=== PATIENT | female | born 1995 | race Caucasian/White ===

== ENCOUNTER → 2017-03-23 | Day surgery (SDC) | payer OTHER ==
[2017-03-14 11:37] VITALS: Ht 167.6 cm; Wt 75.0 kg
[~2017-03-23] VITALS: Ht 167.6 cm; Wt 75.0 kg
[~2017-03-23] MED LIST: LIDOCAINE HCL 2% 2 ML VIAL (20MG/ML) ONE; MIDAZOLAM HCL 1 MG/ML 2ML VIAL ONE; PROPOFOL IV EMULSION 10 MG/ML 20 ML VIAL IV ONE
--- NOTE | 2017-03-23 12:24 | Endo History and Physical ---
History & Physical Date of Service: Mar 23, 2017. Chief Complaint: cough,GERD Referring Physician: [facility] History of Present Illness 21 yo CF who presents for EGD with Foley placement secondary to Cough and GERD. Past Surgical History Hx Cardiac Surgery: No Hx Internal Defibrillator: No Hx Pacemaker: No Hx Abdominal Surgery: No Hx of Implantable Prosthesis: No Hx Post-Op Nausea and Vomiting: No Hx Cancer Surgery: No Hx Thoracic Surgery: No Hx Orthopedic: No Hx Urinary Tract Surgery: No Family History None Social History Smoking Status: Never Smoker Hx Substance Use: Yes (MARIJUANA OCCASIONALLY) Hx Alcohol Use: Yes (4-5 DRINKS OVER WEEKEND) Allergies Coded Allergies: Amoxicillin (Verified Allergy, Unknown, HIVES, 03/14/17) Clavulanic Acid (Verified Allergy, Unknown, HIVES, 03/14/17) Current Medications Reported Home Medications Medications Dose Route/Sig Max Daily Dose Days Date Category No Active Prescriptions or Reported Medications Rx Vital Signs Weight (Kilograms): 75 Height (Feet): 5 Height (Inches): 6 Date Time Temp Pulse Resp B/P (MAP) Pulse Ox O2 Delivery O2 Flow Rate FiO2 03/23/17 11:38 36.7 76 16 124/82 (96) 96 Room Air Physical Exam General Appearance: WD/WN, no apparent distress Respiratory/Chest: Auscultation: breath sounds normal Cardiovascular: Heart Auscultation: RRR Abdomen: Bowel Sounds: normal Inspection & Palpation: soft, non-distended, no tenderness, guarding & rebound Assessment and Plan Assessment: 21 yo CF who presents for EGD with Foley placement secondary to Cough and GERD. Plan: Proceed with EGD with Foley placement.
--- NOTE | 2017-03-23 12:55 | GI REPORT ---
Procedure Date: 03/23/2017 12:19 PM Procedure: Upper GI endoscopy Indications: Suspected esophageal reflux Medicines: Monitored Anesthesia Care Complications: No immediate complications. Estimated Blood Loss: Estimated blood loss: none. Procedure: Pre-Anesthesia Assessment: - Prior to the procedure, a History and Physical was performed, and patient medications and allergies were reviewed. The patient's tolerance of previous anesthesia was also reviewed. The risks and benefits of the procedure and the sedation options and risks were discussed with the patient. All questions were answered, and informed consent was obtained. Prior Anticoagulants: The patient has taken no previous anticoagulant or antiplatelet agents. ASA Grade Assessment: II - A patient with mild systemic disease. After reviewing the risks and benefits, the patient was deemed in satisfactory condition to undergo the procedure. After obtaining informed consent, the endoscope was passed under direct vision. Throughout the procedure, the patient's blood pressure, pulse, and oxygen saturations were monitored continuously. The scope was introduced through the mouth, and advanced to the second part of duodenum. The upper GI endoscopy was accomplished without difficulty. The patient tolerated the procedure well. Findings: The JAIME capsule with delivery system was introduced through the mouth and advanced into the esophagus, such that the JAIME pH capsule was positioned 33 cm from the incisors, which was 6 cm proximal to the EG junction. The JAIME pH capsule was then deployed and attached to the esophageal mucosa. The delivery system was then withdrawn. Endoscopy was utilized for probe placement and diagnostic evaluation. The examined esophagus was normal. The stomach was normal. The examined duodenum was normal. Impression: - Normal esophagus. - Normal stomach. - Normal examined duodenum. - The JAIME pH capsule was deployed. - No specimens collected. Recommendation: - Resume previous diet. - Continue present medications. - Return to GI clinic as previously scheduled. Elie Blankenship DO 03/23/2017 12:55:25 PM This report has been signed electronically. Note Initiated On: 03/23/2017 12:19 PM I attest to the content of the Intraoperative Record and orders documented therein, exceptions below
--- NOTE | 2017-03-23 12:58 | Discharge Instructions ---
Endoscopy Patient Instructions Date / Procedure(s) Performed Mar 23, 2017. EGD Allergy Information Coded Allergies: Amoxicillin (Verified Allergy, Unknown, HIVES, 03/14/17) Clavulanic Acid (Verified Allergy, Unknown, HIVES, 03/14/17) Discharge Date / Findings Mar 23, 2017. Successful Foley pH placement Medication Instructions OK to resume all medications today as prescribed Reported Home Medications Medications Dose Route/Sig Max Daily Dose Days Date Category No Active Prescriptions or Reported Medications Rx Provider Instructions Activity Restrictions - No exercising or heavy lifting for 24 hours. - Do not drink alcohol the day of the procedure. - Do not drive a car or operate machinery until the day after the procedure. - Do not make any important decisions or sign important papers in 24 hours after the procedure. Following Day: - Return to full activity which may include returning to work/school. Diet Start your diet with liquids and light foods (jello, soup, juice, toast). Then eat your usual diet if not nauseated. Treatment For Common After Affects For mild abdominal pain, bloating, or excessive gas: - Rest - Eat lightly - Lie on right side Follow-Up Information Follow-up with [facility] as scheduled Anesthesia Information What You Should Know You have had a procedure that required some medicine to reduce anxiety and discomfort. This treatment is called moderate sedation. After receiving the treatment, you may be sleepy, but you will be able to breathe on your own. The effects of the treatment may last for several hours. Follow these instructions along with Activity/Diet recommendations noted above: * Do NOT do anything where dizziness or clumsiness would be dangerous. * Rest quietly at home today, then you can be up and about tomorrow. * Have a responsible person stay with you the rest of today. * You may have had an I.V. today. If so, you may take the dressing off later today. Recommendations Call your doctor if: * Trouble breathing * Continuous vomiting for more than 24 hours * Temperature above 101 degrees * Severe abdominal pain or bloating * Pain not relieved by pain medicine ordered * There is increased drainage or redness from any incision * A large amount of rectal bleeding greater than 2-3 tablespoons. (If you had a polyp/s removed or have hemorrhoids, a small amount of blood - from the rectum is to be expected.) * You have any unanswered questions or concerns. IN THE EVENT OF A SERIOUS EMERGENCY, GO TO THE NEAREST EMERGENCY ROOM Your discharge instructions were prepared by provider Elie Blankenship. Patient Instructions Signature Page Becky Jacob Patient (or Guardian) Signature/Date: I have read and understand the instructions given to me by my caregivers. Caregiver/RN/Doctor Signature/Date: The above-named patient and/or guardian has received patient instructions on this date. + Original Patient Signature Page (only) stays with chart. Please make copy for patient.
--- NOTE | 2017-03-23 13:27 | Anesthesiology Progress Note ---
Anesthesia Post Op Note Date & Time Mar 23, 2017 at 13:27 Vital Signs Pain Intensity: 0 Vital Signs Past 12 Hours Date Time Temp Pulse Resp B/P (MAP) Pulse Ox O2 Delivery O2 Flow Rate FiO2 03/23/17 13:15 66 16 106/65 (79) 100 Room Air 03/23/17 13:00 64 16 106/64 (78) 97 Room Air 03/23/17 11:38 36.7 76 16 124/82 (96) 96 Room Air Notes Mental Status: alert / awake / arousable, participated in evaluation Pt Amnestic to Procedure: Yes Nausea / Vomiting: adequately controlled Pain: adequately controlled Airway Patency, RR, SpO2: stable & adequate BP & HR: stable & adequate Hydration State: stable & adequate Anesthetic Complications: no major complications apparent
[2017-03-23 13:30] VITALS: BP 108/74; PULSE 66; O2SAT 97
--- NOTE | 2017-03-23 13:30 | Anesthesiology Progress Note ---
Anesthesia Post Op Note Date & Time Mar 23, 2017 at 13:29 Vital Signs Pain Intensity: 0 Vital Signs Past 12 Hours Date Time Temp Pulse Resp B/P (MAP) Pulse Ox O2 Delivery O2 Flow Rate FiO2 03/23/17 13:15 66 16 106/65 (79) 100 Room Air 03/23/17 13:00 64 16 106/64 (78) 97 Room Air 03/23/17 11:38 36.7 76 16 124/82 (96) 96 Room Air Notes Mental Status: alert / awake / arousable, participated in evaluation Pt Amnestic to Procedure: Yes Nausea / Vomiting: adequately controlled Pain: adequately controlled Airway Patency, RR, SpO2: stable & adequate BP & HR: stable & adequate Hydration State: stable & adequate Anesthetic Complications: no major complications apparent
--- NOTE | 2017-03-28 17:36 | PROGRESS NOTE ---
DATE: 03/28/2017 JAIME PH IMPRESSION STATEMENT RACE: . SUBJECTIVE: The Jaime pH study was performed off medication and the data acquisition was sufficient for analysis. The acid exposure based on percent time pH was less than 4 was 5.6% on day #1 and 7% on day #2 was. The total present time, the pH was less than 4 throughout the study was 6.8%. The DeMeester score on day #1 was slightly elevated at 16.4 with anything greater than or equal to 14.72 considered positive. The DeMeester score on day #2 was 17.3 with a total DeMeester score throughout the study of 17.0. A total of 3 symptoms were reported. There were too few episodes of heartburn to correlate with symptoms; however, both chest pain and regurgitation were not associated with reflux. The data was consistent with abnormal acid exposure and negative correlation between symptoms and reflux. PLAN: I would recommend that the patient followup in our office for further evaluation and recommendations. Initially, I would recommend lifestyle modification including diet and exercise with cold weight loss of 10% of her body weight. I would also recommend elevation of the head of her bed. She may use PPI versus H2 receptor antagonist therapy. If symptoms are felt to be occurring greater than 4 days per week, I would also recommend limiting the intake of alcohol and carbonated beverages as these can lead to decreased lower esophageal sphincter tone. I will make further recommendations in our office. Once again, thanks for allowing me to participate in the care of this patient. If you have any further questions, please do not hesitate in contacting me.
== END | disposition home or self-care (01) ==
LOC: C.GI 11:17
PROVIDERS: ATTEND Internal Medicine
DX: R05 Cough (principal); K21.9 Gastro-esophageal reflux disease without esophagitis; Z92.241 Personal history of systemic steroid therapy